=== PATIENT | male | born 1975 | race Caucasian/White ===

== ENCOUNTER 2019-03-02 10:38 | Observation (INO) ==
[2019-03-02] MEDS ORDERED: Sodium Chloride 0.9% 1,000 ML PRIMARY IV ONE (10:49)
[2019-03-02] MEDS ORDERED: ONDANSETRON 4 MG/2 ML VIAL IVP ONE (10:49)
[2019-03-02] MEDS ORDERED: LORazepam 2 MG/1 ML VIAL IVP ONE ×2 (10:50→13:43)
[2019-03-02 10:57] LABS: BASOPHILS # (AUTO) 0.07 10*3/UL; BASOPHILS % (AUTO) 0.7 % (0-1); EOSINOPHILS # (AUTO) 0.19 10*3/UL; Hematocrit [HCT] 48.6 % (42.0-52.0); Hemoglobin [HGB] 16.6 g/dL (14.0-18.0); LYMPHOCYTES # (AUTO) 2.59 10*3/uL; MEAN CORPUSCULAR HGB CONC 34.2 g/dL (33-37); MEAN CORPUSCULAR VOLUME 89.3 FL (80-90); MEAN PLATELET VOLUME 9.8 FL (7.4-12.2); MONOCYTES # (AUTO) 0.58 10*3/UL (0.3-0.8); NEUTROPHILS # (AUTO) 6.24 10*3/UL; NEUTROPHILS % (AUTO) 64.4 % (50-80); RED BLOOD COUNT 5.44 10^6/uL (4.70-6.10)
[2019-03-02 10:59] LABS: PLATELET MORPHOLOGY COMMENT NORMAL MORPHOLOGY (NORM); RBC MORPHOLOGY COMMENT NORMAL MORPHOLOGY (NORM); WBC MORPHOLOGY COMMENT NORMAL MORPHOLOGY (NORM)
[2019-03-02 11:09] LABS: BLOOD UREA NITROGEN 13 mg/dL (7-22); SERUM ALBUMIN 4.4 g/dL (3.5-4.8)
[2019-03-02] MEDS ORDERED: LABETALOL 20 MG/4 ML (5 MG/1 ML) SYRINGE IVP ONE (11:49)
[2019-03-02] MEDS ORDERED: fentaNYL Inj 100 MCG/2 ML VIAL IVP ONE (11:49)
[2019-03-02 11:52] LABS: BILIRUBIN,URINE NEGATIVE (NEG); CLARITY,URINE CLEAR (CLEAR); COLOR,URINE YELLOW (Y); GLUCOSE, URINE (UA) NEGATIVE (NEG); OCCULT BLOOD,URINE NEGATIVE (NEG); PROTEIN,URINE NEGATIVE (NEG); UROBILINOGEN,URINE 0.2 EU/dL (0.2)
[2019-03-02 11:53] LABS: URINE SAMPLE TYPE CLEAN CATCH URINE; URINE SPECIFIC GRAVITY - MAN 1.014
[2019-03-02] MEDS ORDERED: ASPIRIN 81 MG (BABY) CHEWABLE TABLET PO ONE (12:30)
[2019-03-02 13:27] LABS: AMPHETAMINE SCREEN NEGATIVE (NEG); CANNABINOID SCREEN,URINE POSITIVE (NEG); COCAINE SCREEN NEGATIVE (NEG); METHADONE URINE SCREEN NEGATIVE (NEG); METHAMPHETAMINES SCREEN,URINE NEGATIVE (NEG); OPIATE SCREEN,URINE NEGATIVE (NEG)
[2019-03-02] MEDS ORDERED: LIDOCAINE W/ SODIUM BICARB 0.5 ML SYR SUBD PRN (13:41)
[2019-03-02] MEDS ORDERED: CALCIUM CARBONATE 500 MG (TUMS) CHEWABLE TABLET PO PRN (13:41)
[2019-03-02] MEDS ORDERED: CloNIDine Tab 0.1 MG TABLET PO ONE (13:41)
[2019-03-02] MEDS ORDERED: NITROGLYCERIN 0.4 MG SL TAB (BOTTLE OF 3) SL PRN (13:41)
[2019-03-02] MEDS: LISINOPRIL 20 MG TABLET PO SCH (14:45)
[2019-03-02] MEDS: NICOTINE 21 MG /DAY PATCH TRANSDERM SCH (18:07)
[2019-03-03 04:39] LABS: BLOOD UREA NITROGEN 9 mg/dL (7-22); CHOL/HDL RATIO 4.65 RATIO (0-4.0); SERUM ALBUMIN 3.9 g/dL (3.5-4.8)
[2019-03-03] MEDS: LORazepam 2 MG/1 ML VIAL IVP PRN ×2 (04:39→07:59)
[2019-03-03] MEDS ORDERED: Influenza 19-20 Vaccine (6mo+) 60 MCG/0.5 ML SYRINGE IM ONE (06:34)
[2019-03-03] MEDS: [UNRECOGNIZED DRUG - OTHER] TRANSDERM SCH (09:21)
[2019-03-03] MEDS: NICOTINE 21 MG /DAY PATCH TRANSDERM SCH (09:22)
[2019-03-03] MEDS: LISINOPRIL 20 MG TABLET PO SCH (09:22)
[2019-03-03] MEDS ORDERED: CLONIDINE TRANSDERM SCH (10:15)
[2019-03-03] MEDS ORDERED: [UNRECOGNIZED DRUG - OTHER] TRANSDERM SCH (10:15)
[2019-03-03] MEDS: DIAZEPAM 10 MG TABLET PO SCH ×2 (11:21→20:54)
[2019-03-03] MEDS: CITALOPRAM 20 MG TABLET PO SCH (11:22)
[2019-03-04] MEDS: DIAZEPAM 10 MG TABLET PO SCH ×3 (02:14→20:51)
[2019-03-04 05:02] LABS: BLOOD UREA NITROGEN 12 mg/dL (7-22); SERUM ALBUMIN 3.9 g/dL (3.5-4.8)
[2019-03-04 05:03] LABS: HEMOGLOBIN A1C 5.37 % (4.2-6.0)
[2019-03-04] MEDS: NICOTINE 21 MG /DAY PATCH TRANSDERM SCH (08:26)
[2019-03-04] MEDS: LISINOPRIL 20 MG TABLET PO SCH (08:27)
[2019-03-04] MEDS: CITALOPRAM 20 MG TABLET PO SCH (08:27)
[2019-03-04] MEDS: [UNRECOGNIZED DRUG - OTHER] TRANSDERM SCH (08:28)
[2019-03-04] MEDS ORDERED: Acetaminophen 1000mg Inj 1,000 MG/100 ML VIAL IV ONE (14:22)
[2019-03-05] MEDS: DIAZEPAM 10 MG TABLET PO SCH ×2 (02:33→10:23)
[2019-03-05] MEDS: LISINOPRIL 20 MG TABLET PO SCH (08:52)
[2019-03-05] MEDS: CITALOPRAM 20 MG TABLET PO SCH (08:53)
[2019-03-05] MEDS: NICOTINE 21 MG /DAY PATCH TRANSDERM SCH (08:53)
[2019-03-05 09:03] VITALS: RESP 20
[2019-03-05 10:23] VITALS: BP 170/130; TEMP 97.3; O2SAT 96
== END 2019-03-05 10:55 | disposition home or self-care (01) ==
LOC: ER 10:38 → MED/SURG 10:38
PROVIDERS: ADMIT Internal Medicine; ATTEND Internal Medicine